=== PATIENT | female | born 1955 | race Caucasian/White ===

== ENCOUNTER → 2016-08-04 | Outpatient (CLI) | payer OTHER ==
--- NOTE | 2016-08-04 14:17 | MA ---
Right Digital Diagnostic Mammograms Indication: Asymmetries in deep right breast. Comparison: Screening mammograms dated May 2016, December 2014, October 2013, July 2012, March 0, August 2009, and October 2008. Breast Density: Type B. Technique: Implant-displaced spot compressed CC and MLO and true lateral views.. Processed by Lily weems Letrachelle. Findings: The asymmetries disperse on the spot compressed views. Scattered fibroglandular tissue thro ughout the right breast has a similar pattern dating back to 2008. No underlying mass or architectura l distortion. Impression: Benign superimposed fibroglandular tissue. BI-RADS 2: Benign Finding. Recommendation: Resume routine mammographic screening in May 2017 unless otherwise clinically in dicated. Patient notified of the negative results and recommendations at the end of the study by the [facility] her. [facility] will send a result letter to the patient. Negative mammography should not preclude additional workup of a clinically suspicious finding. The patient's information is entered into a reminder system with a target due date for her next mammo gram.
== END ==
LOC: BMCIMAGING 13:15
PROVIDERS: ATTEND Internal Medicine
DX: Z12.39 Encounter for other screening for malignant neoplasm of breast (principal); R92.8 Other abnormal and inconclusive findings on diagnostic imaging of breast
CPT/HCPCS: G0206

== ENCOUNTER → 2017-07-04 | Outpatient (CLI) | payer OTHER | LOC: BMCIMAGING 08:24 | PROVIDERS: ATTEND Internal Medicine | DX: Z12.31 Encounter for screening mammogram for malignant neoplasm of breast (principal) ==